=== PATIENT | female | born 1935 | race Caucasian/White ===

== ENCOUNTER → 2018-03-26 | Outpatient (RCR) | payer MEDICARE, OTHER | LOC: PT 14:04 | PROVIDERS: ATTEND Specialist | DX: M47.816 Spondylosis without myelopathy or radiculopathy, lumbar region (principal); M70.61 Trochanteric bursitis, right hip | CPT/HCPCS: 97162; G8978; G8979 ==

== ENCOUNTER 2018-04-24 10:56 | Outpatient (RCR) | payer MEDICARE | END 2018-04-25 | LOC: PT 10:56 | PROVIDERS: ATTEND Specialist | DX: M47.816 Spondylosis without myelopathy or radiculopathy, lumbar region (principal); M70.61 Trochanteric bursitis, right hip; M62.81 Muscle weakness (generalized) | CPT/HCPCS: 97110 ×11; 97139; 97530 ×2; G8978; G8979 ==

== ENCOUNTER 2018-05-15 11:00 | Outpatient (RCR) | payer MEDICARE | END 2018-05-26 | LOC: PT 11:00 | PROVIDERS: ATTEND Specialist | DX: M47.816 Spondylosis without myelopathy or radiculopathy, lumbar region (principal); M70.61 Trochanteric bursitis, right hip | CPT/HCPCS: 97110 ×4; 97139; G8979; G8980 ==